=== PATIENT | female | born 1975 | race African-American/Black ===

== ENCOUNTER → 2023-08-23 | Emergency (ER) | payer BC ==
[~2023-08-23] MED LIST: DIPHENHYDRAMINE 50 MG/ML VIAL ONE; KETOROLAC 30 MG/ML INJ ONE; METOCLOPRAMIDE 10 MG/2mL INJ ONE; NA CHLORIDE 0.9% 1,000 ML ONE; NA CHLORIDE 0.9% 50 ML ONE
[2023-08-23 10:33] LABS: Absolute Lymphocytes (CBC) 1.5 K/uL (0.7-4.9); Hematocrit 25.9 % (36.0-45.0); Lymphocytes % 26.9 % (15.3-44.8); MCV 65.4 fL (80-100); MPV 6.8 fL (7.6-11.3); Platelets 425 thou/uL (152-406); RBC Red Blood Cell Count 3.97 M/uL (3.86-4.86)
--- NOTE | 2023-08-23 10:52 | RAD REPORT ---
EXAM DESCRIPTION: CT - [id number] - 08/23/2023 10:32 am CLINICAL HISTORY: Dizziness;Headache COMPARISON: No comparisons TECHNIQUE: Axial thin cut noncontrast CT images of the head were obtained. Axial thin cut noncontrast CT images of the cervical spine were obtained. Multiplanar reformatted images were generated and reviewed. All CT scans are performed using dose optimization technique as appropriate and may include automated exposure control or mA/KV adjustment according to patient size. FINDINGS: CT HEAD WITHOUT CONTRAST: No acute hemorrhage, hydrocephalus or extra-axial collection is identified.No areas of brain edema or midline shift. Right maxillary sinus base mucous retention cyst. Mastoid air cells are well aerated. The calvarium i s intact. CT CERVICAL SPINE WITHOUT CONTRAST: No fracture or subluxation.No prevertebral soft tissues swelling is identified. IMPRESSION: No acute traumatic intracranial or cervical spine findings.
[2023-08-23 10:54] LABS: Potassium 4.1 mEq/L (3.5-5.1)
[2023-08-23 10:58] LABS: Anisocytosis 1+; Blood Morphology Comment NOTED (NOT SEEN); Hypochromasia 1+; Platelet Estimate ADEQ; Polychromasia 1+; White Blood Cell Scan OK (OK)
--- NOTE | 2023-08-23 11:39 | ER ---
Nurse's Notes [facility] Name: Francisca Marrero Age: 48 yrs Sex: Female : 1975 Arrival Date: 08/23/2023 Time: 09:30 Bed 19 Private MD: Diagnosis: Migraine without aura, not intractable, with status migrainosus;Iron deficiency anemia, unspecified Presentation: 08/23 09:59 Chief complaint: Patient states: Intermittent headache for about a week, worse today, nj1 right side that radiates to neck. Does not take blood thinners. Nauseous. Coronavirus screen: Vaccine status: Patient reports receiving the 2nd dose of the covid vaccine. Ebola Screen: Patient denies travel to an Ebola-affected area in the 21 days before illness onset. Initial Sepsis Screen: Does the patient meet any 2 criteria? No. Patient's initial sepsis screen is negative. Does the patient have a suspected source of infection? No. Patient's initial sepsis screen is negative. Risk Assessment: Do you want to hurt yourself or someone else? Patient reports no desire to harm self or others. Onset of symptoms was July 2023. 09:59 Method Of Arrival: Ambulatory [facility] 09:59 Acuity: AYE 3 nj1 Triage Assessment: 12:13 GI: Reports. db Historical: - Allergies: 10:02 No Known Allergies; nj1 - PMHx: 10:02 None; nj1 - PSHx: 10:02 Cholecystectomy; nj1 - Immunization history:: Client reports receiving the 2nd dose of the Covid vaccine. - Social history:: Smoking status: Patient denies any tobacco usage or history of. Screenin:24 [facility] ED Fall Risk Assessment (Adult) History of falling in the last 3 months, db including since admission No falls in past 3 months (0 pts) Confusion or Disorientation No (0 pts) Intoxicated or Sedated No (0 pts) Impaired Gait No (0 pts) Mobility Assist Device Used No (0 pt) Altered Elimination No (0 pt) Score/Fall Risk Level 0 - 2 = Low Risk Oriented to surroundings, Maintained a safe environment. Abuse screen: Denies threats or abuse. Denies injuries from another. Nutritional screening: No deficits noted. Tuberculosis screening: No symptoms or risk factors identified. Assessment: 10:01 Reassessment: PATIENT NOT IN ROOM FOR INITIAL ASSESMENT. db 12:12 Reassessment: Patient appears in no apparent distress at this time. Patient and/or db family updated on plan of care and expected duration. Pain level reassessed. Patient is alert, oriented x 3, equal unlabored respirations, skin warm/dry/pink. General: Appears in no apparent distress. comfortable, Behavior is calm, cooperative. Pain: Complains of pain in right side of forehead. Neuro: Level of Consciousness is awake, alert, obeys commands, Oriented to person, place, time, situation. GI: Abdomen is non-distended. Vital Signs: 09:59 BP 123 / 75; Pulse 90; Resp 16; Temp 98.8; Pulse Ox 99% ; Weight 77.11 kg; Height 5 ft. nj1 6 in. ; Pain 8/10; 10:44 BP 119 / 78; Pulse 79; Resp 18; Pulse Ox 100% on R/A; db 11:00 BP 104 / 60; Pulse 74; Resp 18; Pulse Ox 100% on R/A; db 11:30 BP 106 / 67; Pulse 85; Resp 18; Pulse Ox 100% on R/A; db 09:59 Body Mass Index 27.44 (77.11 kg, 167.64 cm) nj1 09:59 Pain Scale: Adult nj1 Imperial Coma Score: 10:16 Eye Response: spontaneous(4). Motor Response: obeys commands(6). Verbal Response: sb4 oriented(5). Total: 15. ED Course: 09:35 Patient arrived in ED. im 09:38 Zoraida Le PA-C is PHCP. sb4 09:38 Benny Flores MD is Attending Physician. sb4 10:02 Triage completed. nj1 10:02 Arm band placed on right wrist. nj1 10:18 Анна Borges, RICHELLE is Primary Nurse. db 10:31 Head C Spine MPR Wo Con CT In Process Unspecified. EDMS 10:45 Inserted saline lock: 20 gauge in right antecubital area, using aseptic technique. db Blood collected. 11:24 No provider procedures requiring assistance completed. db 11:25 Patient has correct armband on for positive identification. Bed in low position. Call db light in reach. Side rails up X2. Pulse ox on. NIBP on. Warm blanket given. 12:12 Provided Education on: DISCHARGE. db 12:12 IV discontinued, intact, bleeding controlled, No redness/swelling at site. db Administered Medications: 10:51 Drug: NS 0.9% IV 1000 ml IV at 1 bolus Per protocol; 1000 mL bolus Route: IV; Rate: 1 db bolus; Site: right antecubital; 12:11 Follow up: Response: No adverse reaction; IV Status: Completed infusion db 10:51 Drug: Ketorolac IVP 15 mg IVP once Route: IVP; Site: right antecubital; db 12:11 Follow up: Response: No adverse reaction db 10:51 Drug: metoCLOPramide IVP 10 mg IVP once; over 1 to 2 minutes Route: IVP; Site: right db antecubital; 12:11 Follow up: Response: No adverse reaction db 10:51 Drug: diphenhydrAMINE IVP 25 mg IVP once Route: IVP; Site: right antecubital; db 12:11 Follow up: Response: No adverse reaction db Medication: 12:12 VIS not applicable for this client. db Outcome: 11:38 Discharge ordered by MD. chavez 12:12 Discharged to home ambulatory, with friend, db 12:12 Condition: stable 12:12 Discharge instructions given to patient, family, Instructed on discharge instructions, follow up and referral plans. 12:12 Prescriptions given X 1, db 12:13 Patient left the ED. db Signatures: Dispatcher [employer] Анна Barroso RN RN Zoraida Smith, PA-C PA-C sb4 Kanchan Tiwari RN RN nj1 Livier Colvin im
--- NOTE | 2023-08-23 11:39 | EDPHYS ---
Physician Documentation [facility] Name: Francisca Marrero Age: 48 yrs Sex: Female : 1975 Arrival Date: 08/23/2023 Time: 09:30 Bed 19 Private MD: ED Physician Benny Flores HPI: 08/23 10:16 This 48 yrs old Female presents to ER via Ambulatory with complaints of headache. sb4 10:16 The patient complains of pain to the right side of forehead. Onset: The sb4 symptoms/episode began/occurred 1 week(s) ago. Associated signs and symptoms: Pertinent positives: dizziness, Photophobia blurred vision, Pertinent negatives: altered mental status, vision loss, vomiting, weakness. Headache History: Denies prior headaches. The symptoms are alleviated by nothing. the symptoms are aggravated by lights, noise. The patient has not experienced similar symptoms in the past. The patient has not recently seen a physician. headache right forehead x 1 week, radiates down to right side of neck. been taking Excedrin without relief. Historical: - Allergies: 10:02 No Known Allergies; nj1 - PMHx: 10:02 None; nj1 - PSHx: 10:02 Cholecystectomy; nj1 - Immunization history:: Client reports receiving the 2nd dose of the Covid vaccine. - Social history:: Smoking status: Patient denies any tobacco usage or history of. ROS: 10:16 Constitutional: Negative for fever, chills, and weight loss, sb4 10:16 Abdomen/GI: Positive for nausea, 10:16 Neuro: Positive for headache, 10:16 All other systems are negative, Exam: 10:16 Head/Face: Normocephalic, atraumatic. Eyes: Extra-ocular motions intact. Periorbital sb4 areas with no swelling, redness, or edema. ENT: Mucous membranes moist. Cardiovascular: Regular rate and rhythm with a normal S1 and S2. Respiratory: Lungs have equal breath sounds bilaterally, clear to auscultation and percussion. No rales, rhonchi or wheezes noted. No increased work of breathing, no retractions or nasal flaring. Abdomen/GI: Soft, non-tender, no distension. Skin: Warm, dry with normal turgor. Normal color with no rashes, no lesions, and no evidence of cellulitis. MS/ Extremity: Pulses equal, no cyanosis. Neurovascular intact. Full, normal range of motion. Neuro: Awake and alert, GCS 15, oriented to person, place, time, and situation. Motor strength 5/5 in all extremities. Sensory grossly intact. 10:16 Constitutional: The patient appears alert, awake, in obvious pain, uncomfortable, tearful Vital Signs: 09:59 BP 123 / 75; Pulse 90; Resp 16; Temp 98.8; Pulse Ox 99% ; Weight 77.11 kg; Height 5 ft. nj1 6 in. ; Pain 8/10; 10:44 BP 119 / 78; Pulse 79; Resp 18; Pulse Ox 100% on R/A; db 11:00 BP 104 / 60; Pulse 74; Resp 18; Pulse Ox 100% on R/A; db 11:30 BP 106 / 67; Pulse 85; Resp 18; Pulse Ox 100% on R/A; db 09:59 Body Mass Index 27.44 (77.11 kg, 167.64 cm) nj1 09:59 Pain Scale: Adult nj1 Samantha Coma Score: 10:16 Eye Response: spontaneous(4). Motor Response: obeys commands(6). Verbal Response: sb4 oriented(5). Total: 15. MDM: 09:58 Patient medically screened. sb4 10:16 Differential diagnosis: cluster headache, cerebral vascular accident, migraine, sb4 neoplasm, tension headache, trigeminal neuralgia, vasomotor headache. 11:36 Data reviewed: vital signs, nurses notes, lab test result(s), radiologic studies, and sb4 as a result, I will discharge patient. Historians other than the Patient: Friend: friend. Counseling: I had a detailed discussion with the patient and/or guardian regarding the historical points, exam findings, and any diagnostic results supporting the discharge/admit diagnosis, lab results, radiology results, the need for outpatient follow up, for definitive care, to return to the emergency department if symptoms worsen or persist or if there are any questions or concerns that arise at home. Special discussion:. 08/23 10:15 Order name: Basic Metabolic Panel; Complete Time: 10:57 sb4 08/23 10:15 Order name: CBC with Diff; Complete Time: 11:01 sb4 08/23 10:36 Order name: CBC Smear Scan; Complete Time: 11:01 EDMS 08/23 10:15 Order name: Head C Spine MPR Wo Con CT; Complete Time: 10:57 sb4 08/23 10:15 Order name: IV Saline Lock; Complete Time: 10:51 sb4 08/23 10:15 Order name: Labs collected and sent; Complete Time: 10:51 sb4 Administered Medications: 10:51 Drug: NS 0.9% IV 1000 ml IV at 1 bolus Per protocol; 1000 mL bolus Route: IV; Rate: 1 db bolus; Site: right antecubital; 12:11 Follow up: Response: No adverse reaction; IV Status: Completed infusion db 10:51 Drug: Ketorolac IVP 15 mg IVP once Route: IVP; Site: right antecubital; db 12:11 Follow up: Response: No adverse reaction db 10:51 Drug: metoCLOPramide IVP 10 mg IVP once; over 1 to 2 minutes Route: IVP; Site: right db antecubital; 12:11 Follow up: Response: No adverse reaction db 10:51 Drug: diphenhydrAMINE IVP 25 mg IVP once Route: IVP; Site: right antecubital; db 12:11 Follow up: Response: No adverse reaction db Disposition Summary: 08/23/23 11:38 Discharge Ordered Notes: Location: Home sb4 Problem: an ongoing problem sb4 Symptoms: have improved sb4 Condition: Stable sb4 Diagnosis - Migraine without aura, not intractable, with status migrainosus sb4 - Iron deficiency anemia, unspecified sb4 Followup: sb4 - With: Emergency Department - When: As needed - Reason: Trouble breathing, Worsening of condition Discharge Instructions: - Discharge Summary Sheet sb4 - Migraine Headache, [id number] sb4 - Iron Deficiency Anemia, Adult, [id number] sb4 Forms: - Work release form sb4 - Medication Reconciliation Form sb4 - Thank You Letter sb4 - Antibiotic Education sb4 - Prescription Opioid Use sb4 - Patient Portal Instructions sb4 - Leadership Thank You Letter sb4 Prescriptions: - Ferrous Sulfate 325 mg (65 mg Iron) Oral tablet - take 1 tablet ORAL route daily; 30 tablet; Refills: 0, Product Selection sb4 Permitted Signatures: Dispatcher [employer] EDMS Borges, Анна, RN RN db Brown, Zoraida, PA-C PA-C sb4 Te, Kanchan, RN RN nj1
[2023-08-23 12:24] VITALS: BP 106/67; TEMP 98.8; O2SAT 100
== END ==
LOC: ER 09:30
DX: G43.001 Migraine without aura, not intractable, with status migrainosus (principal); D50.9 Iron deficiency anemia, unspecified
CPT/HCPCS: 85025; 80048; 36415; 70450; 72125; J2765; J1200; J7030